=== PATIENT | female | born 1995 | race Caucasian/White ===

== ENCOUNTER → 2017-10-19 | Outpatient (CLI) | payer OTHER ==
--- NOTE | 2017-10-19 19:27 | DIAGNOSTIC IMAGING REPORT ---
LUMBAR SPINE W/O CONTRAST CLINICAL HISTORY: 21 years-old Female with LOW BACK PAIN. Chronic low back and left hip pain without reported trauma COMPARISON: Lumbar spine radiographs 10/11/2017, CT abdomen and pelvis 11/30/2012 TECHNIQUE: Multiplanar, multi sequence MRI of the lumbar spine was performed without intravenous contrast. FINDINGS: [employer] local[employer] images demonstrate no gross abnormality of the abdomen, pelvis or paraspinal tissues. The aorta and IVC appear unremarkable. No pathologically enlarged lymph nodes are identified. The visualized thoracic spinal cord appears unremarkable. Conus medullaris terminates at L1. The cauda equina are within normal limits. The axial images are mildly motion degraded. 10 x 8 x 13 mm synovial cyst is noted posterior to the right L2-L3 facet. No acute fracture, subluxation or focal bone marrow edema. Disc desiccation noted at L4-L5 and L5-S1. T12-L1: No central canal or neural foraminal stenosis. L1-L2: No central canal or neural foraminal stenosis. L2-L3: No central canal or neural foraminal stenosis. L3-L4: No central canal or neural foraminal stenosis. L4-L5: Disc desiccation is noted with small circumferential annular disc bulge. Posterior annular fissure with central disc protrusion measures up to 0.4 x 1.2 cm in AP and transverse dimension and causes mild central canal and mild left foraminal narrowing. The right foramen is patent. L5-S1: 5 mm retrolisthesis L5 on S1. Disc desiccation with mild intervertebral disc space narrowing. Small circumferential disc bulge is noted with annular fissure and large central/left paracentral disc extrusion which measures up to 0.8 x 1.9 cm in AP and transverse dimension and extends 5 mm below the superior endplate of L5. This results in severe central canal stenosis with AP dimension of the thecal sac measuring 3 mm. Severe left lateral recess narrowing with mild to moderate bilateral foraminal stenosis. There is abutment and displacement of the left S1 nerve root. IMPRESSION: 1. Mild intervertebral disc space narrowing at L5-S1 with small circumferential annular disc bulge, annular fissure and large central/left paracentral disc extrusion results in severe central canal, severe left lateral recess and mild to moderate bilateral foraminal narrowing with abutment and displacement of the left S1 nerve root. 2. Small disc bulge with annular fissure and central disc protrusion at L4-L5 causes mild central canal and mild left foraminal narrowing. 3. 13 mm synovial cyst posterior to the right L2-L3 facet The above report was generated using voice recognition software. It may contain grammatical, syntax or spelling errors. Electronically signed by: Kaushik Aguilar M.D. 10/19/2017 7:25 PM Dictated Date/Time: 10/19/2017 7:15 PM
== END | disposition home or self-care (01) ==
LOC: C.MRI 17:44
PROVIDERS: ATTEND Family Medicine Sports Medicine
DX: M51.26 Other intervertebral disc displacement, lumbar region (principal); M51.27 Other intervertebral disc displacement, lumbosacral region; M71.38 Other bursal cyst, other site; M53.3 Sacrococcygeal disorders, not elsewhere classified